=== PATIENT | female | born 1985 | race Caucasian/White ===

== ENCOUNTER 2024-09-27 07:54 | Inpatient (IN) | payer MEDICAID, OTHER ==
[2024-09-27] MEDS ORDERED: Carboprost 250 MCG/ML AMP IM PRN (18:11)
[2024-09-27] MEDS ORDERED: hydrALAZINE 20 MG/ML VIAL SLOW IVP PRN (18:11)
[2024-09-27] MEDS ORDERED: Butorphanol Tartrate 1 MG/ML VIAL SLOW IVP PRN (18:11)
[2024-09-27] MEDS ORDERED: Misoprostol 200 MCG TAB PR PRN (18:11)
[2024-09-27] MEDS ORDERED: Diphenoxylate HCl/Atropine Tablet PO PRN (18:11)
[2024-09-27] MEDS ORDERED: Methylergonovine 0.2 MG/ML VIAL IM PRN (18:11)
[2024-09-27] MEDS ORDERED: Promethazine HCl 25 MG/ML VIAL IM PRN (18:11)
[2024-09-27] MEDS ORDERED: Tranexamic Acid 1,000 MG/10 ML VIAL IVP PRN (18:11)
[2024-09-27] MEDS ORDERED: Lidocaine 1% (PF) 30 ML VIAL SC PRN (18:11)
[2024-09-27] MEDS ORDERED: Oxytocin 30 units/NS 500 ML 500 ML IV SCH ×3 (18:15)
[2024-09-27 19:03] VITALS: BMI 33.0
[2024-09-27] MEDS: Lactated Ringer's 1,000 ML IV SCH (19:40)
[2024-09-27 20:07] LABS: Hemoglobin 10.2 g/dL (12.0-15.5); Mean Corpuscular HGB CONC 31.9 g/dL (32.0-36.0); Mean Corpuscular Hemoglobin 27.1 pg (27.0-33.0); Mean Corpuscular Volume 85.1 fL (81.6-98.3); Mean Platelet Volume 10.5 fL (7.4-10.4); Platelet Count 257 10x3/uL (150-450); RBC Distribution Width 14.4 % (11.5-14.5); Red Blood Cell (RBC) Count 3.76 10x6/uL (3.90-5.03); White Blood Cell (WBC) Count 13.09 10x3/uL (3.5-10.5)
[2024-09-27] MEDS: Misoprostol 100 MCG TAB PO SCH (20:15)
[2024-09-27 20:41] LABS: Syphilis Antibody Nonreactive (Nonreactive); Syphilis Antibody Index 0.14 S/CO (<1.00 Non-Reactive)
[2024-09-27 21:23] LABS: HBsAg Index 0.22 S/CO (0-0.99); Hep B Surf Ag - L&D Non-Reactive S/CO (NonReactive)
[2024-09-27] MEDS: Acetaminophen 500 MG TAB PO PRN (23:23)
[2024-09-28] MEDS: Penicillin G Potassium 5 MILL.UNITS in Sodium Chloride 0.9% 100 ML IVPB SCH (00:09)
[2024-09-28] MEDS: Penicillin G 2.5 MILL.units 2.5 MILL.UNITS in Premix 1 BAG IVPB SCH (04:18)
[2024-09-28] MEDS: fentaNYL/Ropivacaine Epidural 100 ML ONE (09:40)
[2024-09-28] MEDS ORDERED: Naloxone HCl 0.4 mg/ml Vial IVP PRN ×2 (09:51)
[2024-09-28] MEDS ORDERED: ePHEDrine Sulfate 50 MG/10 ML VIAL SLOW IVP PRN (09:51)
[2024-09-28] MEDS ORDERED: Ondansetron PF 4 MG/2 ML Vial IVP PRN ×2 (09:51→18:10)
[2024-09-28] MEDS ORDERED: Promethazine HCl 25 MG/ML VIAL IM PRN ×2 (09:51→18:10)
[2024-09-28] MEDS ORDERED: Moisturizing Cream (Eucerin) 113 GM JAR TOP PRN (09:51)
[2024-09-28] MEDS ORDERED: fentaNYL 2 mcg/Ropivacaine 0.2% Epidural 100 ML CADD EPIDURAL SCH (10:00)
[2024-09-28] MEDS ORDERED: Communication Order-Pharmacy FS SCH (10:00)
[2024-09-28] MEDS ORDERED: Lactated Ringer's 500 ML IV PRN (10:09)
[2024-09-28] MEDS: Acetaminophen 325 MG TAB PO PRN (15:13)
[2024-09-28] MEDS: Ondansetron PF 4 MG/2 ML Vial IVP PRN (15:35)
[2024-09-28] MEDS: diphenhydrAMINE 50 MG/ML VIAL IVP PRN (17:43)
[2024-09-28] MEDS ORDERED: Bisacodyl 10 MG SUPP PR PRN (18:10)
[2024-09-28] MEDS ORDERED: hydrALAZINE 20 MG/ML VIAL SLOW IVP PRN (18:10)
[2024-09-28] MEDS ORDERED: diphenhydrAMINE 25 MG CAP PO PRN (18:10)
[2024-09-28] MEDS ORDERED: Milk Of Magnesia 30 ML UDCUP PO PRN (18:10)
[2024-09-28] MEDS ORDERED: Lanolin Ointment 7 GM TUBE TOP PRN (18:10)
[2024-09-28] MEDS: Benzocaine-Menthol 82.5 ML CAN TOP PRN (20:12)
[2024-09-28] MEDS: Ibuprofen 800 MG TAB PO SCH (21:30)
[2024-09-28] MEDS: Docusate 100 MG CAP PO SCH (21:31)
[2024-09-29] MEDS: HYDROcodone/Acetaminophen 5/325 mg Tablet PO PRN (01:17)
[2024-09-29] MEDS: Boostrix 0.5 ML (Tdap) VIAL (>/=7 yrs of age) IM ONE (08:27)
[2024-09-29] MEDS: Ferrous Sulfate 325 MG TAB PO SCH (08:28)
[2024-09-29] MEDS: Prenatal Vitamin 1 TAB PO SCH (08:29)
[2024-09-30 08:11] VITALS: BP 119/60; TEMP 98.5
== END 2024-09-30 17:30 | disposition home or self-care (01) | DRG 807 ==
LOC: CSHLD 18:01 → CSHPP 09-28 18:35
PROVIDERS: ADMIT Family Medicine; ATTEND Family Medicine
PROC: 10907ZC Drainage of Amniotic Fluid, Therapeutic from Products of Conception, Via Natural or Artificial Opening (ICD-10-PCS; principal; 2024-09-27)
PROC: 10E0XZZ Delivery of Products of Conception, External Approach (ICD-10-PCS; 2024-09-28)
PROC: 0HQ9XZZ Repair Perineum Skin, External Approach (ICD-10-PCS; 2024-09-28)
PROC: 0UQMXZZ Repair Vulva, External Approach (ICD-10-PCS; 2024-09-28)
DX: O99.824 Streptococcus B carrier state complicating childbirth (principal); Z37.0 Single live birth; Z3A.39 39 weeks gestation of pregnancy; O70.0 First degree perineal laceration during delivery; O71.82 Other specified trauma to perineum and vulva; O76 Abnormality in fetal heart rate and rhythm complicating labor and delivery
CPT/HCPCS: 36415; 51702; 85027; 86780; 86850; 86870; 86900; 86901; 87340; J1200; J2405; J2540; J7120